=== PATIENT | female | born 1985 | race Two or more races ===

== ENCOUNTER 2022-11-18 09:15 | Outpatient (CLI) | payer OTHER | END 2022-11-18 10:25 | disposition home or self-care (01) | LOC: PRENATAL 09:15 | PROVIDERS: ATTEND Obstetrics & Gynecology Maternal & Fetal Medicine | DX: O35.9XX0 Maternal care for (suspected) fetal abnormality and damage, unspecified, not applicable or unspecified (principal); O35.3XX0 Maternal care for (suspected) damage to fetus from viral disease in mother, not applicable or unspecified; O09.529 Supervision of elderly multigravida, unspecified trimester; Z3A.20 20 weeks gestation of pregnancy ==

== ENCOUNTER 2023-02-10 10:45 | Outpatient (CLI) | payer OTHER | END 2023-02-10 11:48 | disposition home or self-care (01) | LOC: PRENATAL 10:45 | PROVIDERS: ATTEND Obstetrics & Gynecology Maternal & Fetal Medicine | DX: O26.849 Uterine size-date discrepancy, unspecified trimester (principal); O36.8199 Decreased fetal movements, unspecified trimester, other fetus; O09.529 Supervision of elderly multigravida, unspecified trimester; Z3A.32 32 weeks gestation of pregnancy ==

== ENCOUNTER 2023-03-29 13:45 | Inpatient (IN) | payer OTHER ==
[~2023-03-29] VITALS: Ht 162.6 cm; Wt 2.7 kg
[2023-04-01] MEDS ORDERED: VALTREX1000 MG PO (18:27)
[2023-04-01] MEDS ORDERED: PRENATAL TABLE1 EAC1 PO (18:27)
[2023-04-04] MEDS ORDERED: IBUPROFEN800 MG PO (12:15)
[2023-04-04] MEDS ORDERED: COLACE100 MG PO (12:16)
== END 2023-04-04 13:53 | disposition home or self-care (01) | DRG 788 ==
LOC: OB/GYN 04-01 18:00 → LDR 04-01 18:00 → OB/GYN 04-01 19:35 → LDR 04-07 13:45
PROVIDERS: Student in an Organized Health Care Education/Training Program; ADMIT Obstetrics & Gynecology; ATTEND Obstetrics & Gynecology
PROC: 4A1HXCZ Monitoring of Products of Conception, Cardiac Rate, External Approach (ICD-10-PCS; 2023-04-01)
PROC: 10D00Z1 Extraction of Products of Conception, Low, Open Approach (ICD-10-PCS; principal; 2023-04-01 19:00)
DX: O36.8330 Maternal care for abnormalities of the fetal heart rate or rhythm, third trimester, not applicable or unspecified (principal); O99.824 Streptococcus B carrier state complicating childbirth; Z3A.39 39 weeks gestation of pregnancy; Z37.0 Single live birth; Z20.822 Contact with and (suspected) exposure to COVID-19